=== PATIENT | female | born 1960 | race Caucasian/White ===

== ENCOUNTER 2016-10-10 13:27 | Emergency (ER) | payer SELFPAY ==
[~2016-10-10 13:27] MED LIST: ADDERALL30 MG PO; ADDERXR30 PO; AMB5 PO; CLONAZEPAM PO; KLONO2 PO; MSCONT60 PO; NORCO1 TAB PO
[2016-10-10 14:02] LABS: BASOPHILS 0.4 %; BASOPHILS ABSOLUTE 0.02 10/3/uL (0.0-0.16); EOSINOPHILS ABSOLUTE 0.22 10/3/uL (0.0-0.53); HEMATOCRIT 39.6 % (36.0-48.0); HEMOGLOBIN 13.4 g/dL (12.0-16.0); IMMATURE GRANULOCYTES 0.4 %; IMMATURE GRANULOCYTES ABSOLUTE 0.02 10/3/uL (0.0-0.11); LYMPHOCYTES 25.5 %; MEAN CORPUS HGB CONC 33.8 g/dL (32.0-36.0); MEAN CORPUSCULAR HEMOGLOB 30.7 pg (26.0-34.0); MEAN CORPUSCULAR VOLUME 90.8 fL (80-100); MEAN PLATELET VOLUME 9.3 fL (9.2-13.0); MONOCYTES 5.5 %; NEUTROPHILS 64.2 %; NEUTROPHILS ABSOLUTE 3.54 10/3/uL (2.02-8.40); PLATELET COUNT 325 10/3/uL (150-400); RBC DISTRIBUTION WIDTH 12.8 % (12.0-16.0); RED CELL COUNT 4.36 10/6/uL (4.0-5.6); WHITE BLOOD CELLS 5.5 10/3/uL (4.5-10.5)
[2016-10-10 14:04] LABS: MANUAL DIFF NO %
[2016-10-10 14:06] LABS: ASCORBIC ACID (UR NOT ORDER) NEG (NEG); BILIRUBIN, URINE NEGATIVE (NEG); ER URINALYSIS TAT 0 Hrs 10 Mins; KETONE, URINE NEGATIVE (NEG); LEUKOCYTE ESTERASE(NOT OR TRACE (NEG); NITRITE (URINE) NEG (NEG); WBC (NOT ORDERED) (RFLEX) 4 (0-5)
[2016-10-10 14:20] LABS: A/G RATIO 0.9 (0.7-1.9); ALBUMIN 3.7 G/DL (3.5-5.0); ALKALINE PHOSPHATASE 86 U/L (45-117); BUN (BLOOD UREA NITROGEN) 11 MG/DL (6-23); CALCIUM, SERUM 8.7 MG/DL (8.5-10.4); CHLORIDE, SERUM 105 MMOL/L (96-112); CO2 (CARBON DIOXIDE) 30 MMOL/L (24-34); CREATININE 1.05 MG/DL (0.55-1.02); GFR AFRICAN AMERICAN 70 ML/MIN (>=60); GFR NON AFRICAN AMERICAN 60 ML/MIN (>=60); GLOBULIN 3.9 G/DL (2.5-4.1); GLUCOSE, SERUM 109 MG/DL (60-99); POTASSIUM, SERUM 4.4 MMOL/L (3.5-5.3); SGOT(AST) 28 U/L (5-40); SGPT(ALT) 52 U/L (5-65); SODIUM, SERUM 142 MMOL/L (135-148); TOTAL BILIRUBIN 0.3 MG/DL (0-1.2); TOTAL PROTEIN 7.6 G/DL (6.0-8.5)
== END 2016-10-10 16:30 | disposition home or self-care (01) ==
LOC: ER 13:27
PROVIDERS: Emergency Medicine
DX: N93.8 Other specified abnormal uterine and vaginal bleeding (principal); Z79.899 Other long term (current) drug therapy
CPT/HCPCS: 80053; 81001; 83690; 84703; 85025; 99284

== ENCOUNTER 2017-01-28 14:50 | Emergency (ER) | payer SELFPAY ==
[2017-01-28 14:12] LABS: BASOPHILS 0.2 %; BASOPHILS ABSOLUTE 0.01 10/3/uL (0.0-0.16); EOSINOPHILS 2.3 %; EOSINOPHILS ABSOLUTE 0.13 10/3/uL (0.0-0.53); HEMATOCRIT 41.2 % (36.0-48.0); HEMOGLOBIN 14.5 g/dL (12.0-16.0); IMMATURE GRANULOCYTES 0.4 %; IMMATURE GRANULOCYTES ABSOLUTE 0.02 10/3/uL (0.0-0.11); LYMPHOCYTES 23.1 %; MEAN CORPUS HGB CONC 35.2 g/dL (32.0-36.0); MEAN CORPUSCULAR HEMOGLOB 31.6 pg (26.0-34.0); MEAN CORPUSCULAR VOLUME 89.8 fL (80-100); MEAN PLATELET VOLUME 9.7 fL (9.2-13.0); MONOCYTES ABSOLUTE 0.34 10/3/uL (0.21-1.20); NEUTROPHILS ABSOLUTE 3.83 10/3/uL (2.02-8.40); PLATELET COUNT 363 10/3/uL (150-400); RBC DISTRIBUTION WIDTH 13.3 % (12.0-16.0); RED CELL COUNT 4.59 10/6/uL (4.0-5.6); WHITE BLOOD CELLS 5.6 10/3/uL (4.5-10.5)
[2017-01-28 14:13] LABS: MANUAL DIFF NO %
[2017-01-28 14:21] LABS: PARTIAL THROMBO TIME 25.2 SEC (22.5-37.2)
[2017-01-28 14:22] LABS: INTERNATIONAL NORMAL RATI 1.1 UNITS (-); PROTIME (NOT ORD) 13.9 SEC (12.0-14.5)
[2017-01-28 14:25] LABS: A/G RATIO 1.1 (0.7-1.9); ALBUMIN 3.9 G/DL (3.5-5.0); BUN (BLOOD UREA NITROGEN) 9 MG/DL (6-23); CALCIUM, SERUM 9.1 MG/DL (8.5-10.4); CHLORIDE, SERUM 104 MMOL/L (96-112); CREATININE 0.86 MG/DL (0.55-1.02); GFR AFRICAN AMERICAN 89 ML/MIN (>=60); GFR NON AFRICAN AMERICAN 77 ML/MIN (>=60); GLOBULIN 3.6 G/DL (2.5-4.1); SGOT(AST) 15 U/L (5-40); SGPT(ALT) 25 U/L (5-65); SODIUM, SERUM 141 MMOL/L (135-148); TOTAL BILIRUBIN 0.3 MG/DL (0-1.2); TOTAL PROTEIN 7.5 G/DL (6.0-8.5)
[2017-01-28 14:26] LABS: ALKALINE PHOSPHATASE 102 U/L (45-117); CO2 (CARBON DIOXIDE) 25 MMOL/L (24-34); GLUCOSE, SERUM 138 MG/DL (60-99)
== END 2017-01-28 17:25 | disposition home or self-care (01) ==
LOC: ER 14:50
PROVIDERS: Emergency Medicine
DX: N93.9 Abnormal uterine and vaginal bleeding, unspecified (principal); E87.6 Hypokalemia; Z79.899 Other long term (current) drug therapy
CPT/HCPCS: 36415; 71020; 74176; 80053; 85025; 85610; 85730; 86850; 86900; 86901; 93005; 96374; 96375; 99285; A9270-GY; J1170; J2405

== ENCOUNTER 2017-04-13 12:58 | Inpatient (IN) | payer OTHER ==
[~2017-04-13] VITALS: Ht 170.2 cm; Wt 69.5 kg
--- NOTE | ~2017-04-13 | HP ---
History And Physical [facility] [address] [place]. [address] NAME: ANGE CUELLO : 64 STATUS : ADM Radha PAT#: [id number] AGE: 57 ADM/REG DATE : 04/13/17 MR#: [id number] REPORT SERV DATE: 04/14/17 DICTATED BY: OTONIEL CRAIG DATE: 04/13/17 REPORT STATUS : Draft TRANSCRIBED BY: MODL DATE: 04/13/17 DATE OF ADMISSION: 04/13/2017 CHIEF COMPLAINT: Fecal incontinence. HISTORY OF PRESENT ILLNESS: This is a 57-year-old female with a history of osteoarthritis, fibromyalgia, chronic pain, who presents to the emergency room at [facility] with the above-mentioned complaint. History is obtained from the patient and reviewing data available on the Gather system. She is accompanied today by her and daughter, and her mother as well. According to available data, Ms. Cuello had been having fecal incontinence for almost two weeks now. It is so bad, she has no sensation of even her bowel moving and she is wetting diapers. She says she has no control at all and does not feel anything. She has been seen at [facility] in the recent past for evaluation of uterine bleeding. We do not have any records from there, but according to them, they have had many tests done and are waiting for a biopsy. Somehow due to insurance issues, she has been having trouble scheduling these tests there. Going back in her history from [facility], I see report of a CT scan of the abdomen and pelvis which reported uterine thickening in March of 2016. She has been here since early part of this year and has had a repeat CT which showed the same as well. Appointments were made to see a youth support worker both times. Her primary care physician was also informed to follow this. Somewhere in our discussion, she said she has seen Dr. Sanabria, youth support worker, in [facility], and he said there was no cancer. In the emergency room, she had fecal incontinence as mentioned above. No nausea, vomiting, or any other signs. She says there was no blood in it as well. Hospitalist Service is asked to admit her for further evaluation and treatment as she had weakness and dehydration as well. At the time of my evaluation, she denied any chest pain, palpitations, or orthopnea. She had no cough, hemoptysis, night sweats, or weight loss. She has not had any recent falls or loss of consciousness. No history of recent fevers, chills, nausea, vomiting, diarrhea, or dysuria. No history of recent hematemesis or hematochezia. She has had vaginal bleeding secondary to her HOU[employer]ANG[employer]AGE [employer]TER issue going on. PAST MEDICAL HISTORY: Significant for history of uterine thickening, currently under investigation; history of chronic pain; fibromyalgia; and osteoarthritis. SOCIAL HISTORY: She says she does not smoke, drink, or use recreational drugs. FAMILY HISTORY: Noncontributory. MEDICATIONS: At home were reviewed by me in the chart today and reordered by me. REVIEW OF SYSTEMS: History And Physical [address] [address] NAME: ANGE CUELLO : 64 STATUS : ADM Radha PAT#: [id number] AGE: 57 ADM/REG DATE : 04/13/17 MR#: [id number] REPORT SERV DATE: 04/14/17 DICTATED BY: OTONIEL CRAIG DATE: 04/13/17 REPORT STATUS : Draft TRANSCRIBED BY: JOSE C DATE: 04/13/17 As in history of present illness. All other systems were reviewed in detail and are quite unremarkable. PHYSICAL EXAMINATION: GENERAL: This is a pleasant 57-year-old not in any acute distress. HEENT: Her head is atraumatic, normocephalic. She is alert, awake, oriented to time, place, and person. Pupils are equal, reacting to light and accommodating. External ocular muscles are intact. Membranes are moist and pink. Sclerae are nonicteric. NECK: Supple with no jugular venous distention, lymphadenopathy, or thyromegaly. LUNGS: Clear to auscultation with no wheezes, rubs, or crackles. HEART: Heart sounds were regular with no murmurs, rubs, or gallops. ABDOMEN: Diffusely tender. There is no guarding or rigidity. Bowel sounds are present. EXTREMITIES: Showed no cyanosis, clubbing, or edema. NEURO: Grossly intact. She was able to move all 4 extremities, although gait was not examined. VITAL SIGNS: Temperature today was 98.7, pulse 82, respirations 16 a minute, blood pressure was 127/66, and oxygen saturations were 100% on 2 L of oxygen via nasal cannula. LABORATORY DATA: Reviewed on the Gather system showed normal CMP, albumin of 3.7. Alkaline phosphatase, ALT, and AST were within normal limits. CBC showed a white blood cell count of 4100, hemoglobin was 12.8, hematocrit 38.2, and platelet count was 336,000. Urinalysis showed 2 rbc's and 2 wbc's with rare bacteria. Films of the CT scan of her abdomen and pelvis were reviewed by me on the PACS today and interpreted by me. Today's CT scan was compared to prior CT films available on the PACS as well. Per radiology report, there is no acute intra-abdominal pelvic pathology. There is, however, nodular prominence of the uterus, which has been there since prior CT scans as well. IMPRESSION: 1. Diarrhea. 2. Generalized weakness. 3. Uterine thickening, which is not new. 4. Chronic pain. 5. Fibromyalgia. 6. Osteoarthritis. PLAN: We will admit Ms. Cuello to the Hospitalist Service with defensive monitoring for a 24- hour observation. We will start her on IV fluids for hydration, follow chemistry and electrolytes in the morning, and replete as needed. Her uterine thickening, which is not new, has been investigated at [place]. The reports of which we do not have. We will get records from [place]. Meanwhile, the family wanted to go ahead and consult Gynecology service here, so we will go ahead and place a consultation for Gynecology to see her in the morning tomorrow. We will also continue her pain medications that she is on and other treatments as well. She will be placed on unfractionated heparin for DVT prophylaxis while here. I have discussed the above plans with the patient. Her questions were answered, and she and her family are agreeable to the above recommendations. Please see today's orders for all the details. History And Physical [address] [place]. [address] NAME: ANGE CUELLO : 64 STATUS : ADM Radha PAT#: [id number] AGE: 57 ADM/REG DATE : 04/13/17 MR#: [id number] REPORT SERV DATE: 04/14/17 DICTATED BY: OTONIEL CRAIG DATE: 04/13/17 REPORT STATUS : Draft TRANSCRIBED BY: JOSE C DATE: 04/13/17 MR/JOSE C Otoniel Craig M.D. / [id number] CC: MD Trey Sanchez II, M.D.
--- NOTE | ~2017-04-13 | EGD ---
EGD REPORT [facility] [address] [address] NAME: MARTA CUELLO : 64 STATUS : ADM IN PAT#: [id number] AGE: 57 ADM/REG DATE : 04/13/17 MR#: [id number] REPORT SERV DATE: 04/20/17 DICTATED BY: TREY HUMMEL DATE: 04/20/17 REPORT STATUS : Draft TRANSCRIBED BY: [facility] DATE: 04/20/17 Endoscopy Center Patient Name: Marta Cuello Date of : 1960 Attending MD: TREY HUMMEL MD Procedure Date No Time: 04/20/2017 Procedure: Colonoscopy Indications: Fecal incontinence, Incidental change in bowel habits noted Medicines: Monitored Anesthesia Care Complications: No immediate complications. Estimated blood loss: Minimal. Procedure: After I obtained informed consent, the scope was passed under direct vision. Throughout the procedure, the patient's blood pressure, pulse, and oxygen saturations were monitored continuously. The CF [id number] was introduced through the anus and advanced to the cecum, identified by appendiceal orifice and ileocecal valve. The colonoscopy was performed without difficulty. The patient tolerated the procedure well. The quality of the bowel preparation was fair. Findings: The perianal and digital rectal examinations were normal. Pertinent negatives include normal sphincter tone and no palpable rectal lesions. A semi-sessile polyp was found in the transverse colon. The polyp was 6 mm in size. The polyp was removed with a cold snare. Resection and retrieval were complete. Estimated blood loss was minimal. A sessile polyp was found in the sigmoid colon. The polyp was 4 mm in size. The polyp was removed with a cold biopsy forceps. Resection and retrieval were complete. Estimated blood loss was minimal. The exam was otherwise without abnormality on direct and retroflexion views. Impression: - One 6 mm polyp in the transverse colon. Resected and retrieved. - One 4 mm polyp in the sigmoid colon. Resected and retrieved. - The examination was otherwise normal on direct and retroflexion views. Recommendation: - Return patient to [facility] for [facility] care. - Soft diet. - Use fiber, for example Citrucel, Fibercon, Konsyl or Metamucil. EGD REPORT [address] [address] NAME: MARTA CUELLO : 64 STATUS : ADM IN PAT#: [id number] AGE: 57 ADM/REG DATE : 04/13/17 MR#: [id number] REPORT SERV DATE: 04/20/17 DICTATED BY: TREY HUMMEL DATE: 04/20/17 REPORT STATUS : Draft TRANSCRIBED BY: Lionical DATE: 04/20/17 - Lomotil 1 tablet PO daily and titrate up to effect (1-2 controlled BMs daily). - Would consider MRI of lumbar spine for complaints of fecal incontinence if not previously done. - Await pathology results. - Repeat colonoscopy for surveillance based on pathology results. Procedure Code(s): --- Professional --- 69173, Colonoscopy, flexible, proximal to splenic flexure; with removal of tumor(s), polyp(s), or other lesion(s) by snare technique 88131, 59, Colonoscopy, flexible, proximal to splenic flexure; with biopsy, single or multiple Diagnosis Code(s): --- Professional --- D12.5, Benign neoplasm of sigmoid colon D12.3, Benign neoplasm of transverse colon R15.9, Full incontinence of feces CPT copyright 2013 [employer]. All rights reserved. The codes documented in this report are preliminary and upon space control agent review may be revised to meet current compliance requirements. Trey Hummel MD TREY HUMMEL MD 04/20/2017 8:59 AM This report has been signed electronically. Number of Addenda: 0 Note Initiated On: 04/20/2017 7:59 AM Scope Withdrawal Time 0 hours 17 minutes 19 seconds [address] [place] [address]
--- NOTE | ~2017-04-13 | IDS ---
Interim Discharge Summary [facility] [address] [place]. [address] NAME: ANGE CUELLO : 64 STATUS : ADM Radha PAT#: [id number] AGE: 57 ADM/REG DATE : 04/13/17 MR#: [id number] REPORT SERV DATE: 04/18/17 DICTATED BY: JONELLE WANG II DATE: 04/17/17 REPORT STATUS : Draft TRANSCRIBED BY: MODL DATE: 04/17/17 ADMISSION DATE: 04/13/2017 DISCHARGE DATE: DATE OF INTERIM: 04/17/2017. INTERIM DIAGNOSES: 1. Endometrial thickening with vaginal bleeding concerning for endometrial cancer. 2. Persistent fecal incontinence. 3. Reported rectal bleeding with negative Hemoccult. 4. Chronic anxiety, depression, and panic attacks. 5. Chronic pain, on chronic narcotics. CONSULTANTS: Jonelle Kurtz M.D., with Gynecology. PROCEDURES: Hysteroscopy with biopsy and dilatation and curettage. BRIEF HISTORY OF PRESENT ILLNESS: The patient is a 57-year-old female with the above history who presented to [facility] due to fecal incontinence as well as vaginal and questionable rectal bleeding. For detailed history and physical examination, please see Dr. Valdez's note from 04/13/2017. HOSPITAL COURSE: On admission, the patient had a CT of the abdomen and pelvis which showed a nodular prominence of the uterus. Records were obtained from [facility] where she has had multiple ER visits and a workup from their gynecology team and an ultrasound. Her transvaginal ultrasound had shown a thickened heterogeneous endometrium concerning for endometrial cancer as well as an additional 9 mm echogenic lobular masslike structure projecting into the endometrial canal at the level of the uterine fundus. Dr. Kurtz was consulted and performed a hysteroscopy with D and C today. He says he will follow up with the patient in a week for pathology results. Regarding the patient's fecal incontinence, on admission a rectal examination showed no saddle anesthesia and good rectal tone so MRI was deferred especially in light of no obvious findings on the CT scan. Her Hemoccult was negative, but she does continue to complain of fecal incontinence, so we will go ahead and ask GI to see the patient prior to discharge. Of note, the patient does have a fairly significant psychiatric history with severe anxiety, depression, and panic attacks, and according to [facility] notes, she has had prior suicide attempts and inpatient psych admissions. She also has chronic pain and on chronic narcotics. If no further workup per GI, hopefully, the patient may be discharged soon. Of note, Dr. Valdez will take over the patient's care starting tomorrow. RICARDA/JOSE C Jonelle Wang II, MD Interim Discharge Summary [address] [address] NAME: ANGE CUELLO : 64 STATUS : ADM Radha PAT#: [id number] AGE: 57 ADM/REG DATE : 04/13/17 MR#: [id number] REPORT SERV DATE: 04/18/17 DICTATED BY: JONELLE WANG II DATE: 04/17/17 REPORT STATUS : Draft TRANSCRIBED BY: JOSE C DATE: 04/17/17 / [id number] CC: MD Trey Sanchez II, M.D.
--- NOTE | ~2017-04-13 | CN ---
Consultation Report [facility] [address] [place]. [address] NAME: ANGE CUELLO : 64 STATUS : ADM Radha PAT#: [id number] AGE: 57 ADM/REG DATE : 04/13/17 MR#: [id number] REPORT SERV DATE: 04/18/17 DICTATED BY: SHOLA KERNS DATE: 04/18/17 REPORT STATUS : Draft TRANSCRIBED BY: MODL DATE: 04/18/17 GI CONSULTATION DATE OF CONSULTATION: 04/18/2017 REASON FOR CONSULTATION: Evaluation and management of fecal incontinence, history of lower GI bleed. HISTORY OF PRESENT ILLNESS: Ms. Cuello is a 57-year-old female patient who presented to [facility] on the with a chief complaint of abdominal pain, fecal incontinence, vaginal bleeding. Ms. Cuello tells me that she has had fecal incontinence for two to three weeks now. She states that she has no sensation of having a bowel movement or leakage from the rectal area. She has never had a colonoscopy. She has been recently at [facility] for evaluation of abnormal endometrial thickening. She was seen by Gynecology here, underwent exam yesterday, and is to follow up with him as an outpatient. She states that for the past year she has had mainly abdominal weight gain to the point that it appeared she was . She had roughly six weeks worth of rectal and vaginal bleeding, weakness. She was seen by Dr. Kurtz here, had hysteroscopy with biopsy and D and C on 04/17/2017. CT of the abdomen and pelvis on admission showed nodular prominence of the uterus, records from [place] were obtained. She had been seen in the emergency room multiple times and had been worked up by Gynecology team with ultrasound. The transvaginal ultrasound she had there showed a thickened heterogeneous endometrium concerning for endometrial cancer as well as an additional 9 mm echogenic lobular masslike structure projecting into the endometrial canal at the level of the uterine fundus. She reports that her fecal incontinence is ongoing. She states that she has a positive family history of colon cancer in several second-degree relatives. By review of notes, it appears the hospitalist examined the patient yesterday by rectal exam. The patient had good rectal tone and GI consultation was requested for further evaluation. Of note, the patient's mother states that she has a pretty significant history with anxiety, depression, and review of records shows that she has a significant psychiatric history; panic attacks, prior suicide attempts, inpatient psychiatric admissions. She has a history of chronic pain and on chronic pain medications. Long discussion with the patient's family members regarding colonoscopy. The patient and her mother requests colonoscopy to be done prior to discharge as she states she has been trying to get this accomplished for several months now. The risks, benefits, alternatives, complications were detailed for them to include, but not limited to risk of bleeding, perforation, infection, reaction to medication, as well as cardiac and pulmonary side effects. She is agreeable to proceed. PAST MEDICAL HISTORY: Positive for fibromyalgia, rheumatoid arthritis, kidney stones, anxiety, depression, psoriasis, panic attacks. SURGERIES: Cholecystectomy, bilateral tubal ligation, D and C. FAMILY HISTORY: Positive for colon cancer. Consultation Report [address] [place]. [address] NAME: ANGE CUELLO : 64 STATUS : ADM Radha PAT#: [id number] AGE: 57 ADM/REG DATE : 04/13/17 MR#: [id number] REPORT SERV DATE: 04/18/17 DICTATED BY: SHOLA KERNS DATE: 04/18/17 REPORT STATUS : Draft TRANSCRIBED BY: JOSE C DATE: 04/18/17 SOCIAL HISTORY: . Lives independently. Denies alcohol, tobacco, or illicit drugs. ALLERGIES: NO KNOWN ALLERGIES. HOME MEDICATIONS: Adderall, Klonopin, [place], Motrin, MS Contin, and Ambien. REVIEW OF SYSTEMS: A 10-point review of systems has been obtained with pertinent positives being addressed in the history of present illness. PHYSICAL EXAMINATION: VITAL SIGNS: Temperature 98, pulse 56, respirations 16, and blood pressure 103/54. NEURO: An alert, tearful female, resting in bed with no focal deficits. GENERAL: Cooperative, no apparent distress. Awake, alert, oriented x3. HEAD, EARS, EYES, NOSE, AND THROAT: Anicteric. Pupils equal, round, reactive to light and accommodation. Normocephalic and atraumatic. NECK: Supple with no JVD or palpable nodes. LUNGS: Clear anteriorly with normal respiratory effort exhibited. Equal expansion. CARDIOVASCULAR: Regular rate and rhythm. ABDOMEN: Soft, but obese. Mild diffuse tenderness to palpation throughout hypoactive bowel sounds. EXTREMITIES: No edema. Normal distal pulses. SKIN: Warm, dry, and intact. PERTINENT LABORATORY DATA: Sodium is 142, potassium 3.7, BUN is 7, creatinine 0.7. White count 4, hemoglobin 10.9, hematocrit 32.1, platelet count of 282. ASSESSMENT: 1. Fecal incontinence with a history of recent lower GI bleeding. 2. Endometrial thickening, concern for endometrial cancer. 3. Anxiety with panic attacks. 4. Chronic pain syndrome, on chronic pain medications. PLAN: 1. After long discussion with the patient and family, we will place the patient on clear liquid diet today. 2. Give her bowel prep tomorrow for colonoscopy to be done on . 3. We will follow. 4. Other recommendations to follow endoscopy. KENRICK/JOSE C Consultation Report [place] [id number] [place]. [address] NAME: ANGE CUELLO : 64 STATUS : ADM Radha PAT#: [id number] AGE: 57 ADM/REG DATE : 04/13/17 MR#: [id number] REPORT SERV DATE: 04/18/17 DICTATED BY: SHOLA KERNS DATE: 04/18/17 REPORT STATUS : Draft TRANSCRIBED BY: JOSE C DATE: 04/18/17 JEFFREY Zaragoza / [id number] CC: Jeremy Sarkar M.D.
--- NOTE | ~2017-04-13 | DS ---
Discharge Summary [facility] [address] [facility] [place]. [address] NAME: ANGE CUELLO : 64 STATUS : DIS IN PAT#: [id number] AGE: 57 ADM/REG DATE : 04/13/17 MR#: [id number] REPORT SERV DATE: 04/21/17 DICTATED BY: EDWIN ACEVEDO DATE: 04/20/17 REPORT STATUS : Draft TRANSCRIBED BY: MODL DATE: 04/20/17 ADMISSION DATE: 04/13/2017 DISCHARGE DATE: 04/20/2017 DISCHARGED DIAGNOSES: 1. Endometrial thickening with vaginal bleeding concerning for endometrial cancer. 2. Fecal incontinence. 3. Reported rectal bleeding with negative Hemoccult. 4. Chronic anxiety. 5. Chronic pain. CONSULTATIONS: 1. Gynecology, Dr. Kurtz. 2. GI, Dr. Gomes. PROCEDURES AND IMAGIN. Hysteroscopy with biopsy and dilation and curettage. 2. Colonoscopy, 04/20/2017, impression: One 6-mm polyp in the transverse colon, resected and retrieved. One 4-mm polyp in the sigmoid colon, resected and retrieved. Examination was otherwise normal on direct and retroflexed views. 3. CT abdomen and pelvis, 04/13/2017, impression: No evidence of acute abnormality within the abdomen or pelvis. No nodule. Prominence of the uterus which could be more accurately evaluated with pelvic ultrasound. 4. MRI of the spine, 04/20/2017, impression: Moderate degenerative changes. No compression of the exiting nerve roots. No evidence of compression to the conus or cauda equina. LABORATORY DATA: WBC is 4.5, hemoglobin 11.7, hematocrit 35.5, and platelet count is 317. Sodium is 142, potassium is 3.7, chloride is 106, CO2 is 31, BUN is 6, creatinine 0.86, glucose is 82, and calcium is 8.5. COURSE OF HOSPITAL STAY: Please refer to history and physical dictated by Dr. Valdez on 04/13/2017, as well as interim note by Dr. Meade on 04/17/2017. This patient is a 57-year-old female, who presented to the [facility]'s emergency room due to fecal incontinence as well as vaginal and questionable rectal bleeding. Imaging was obtained, which is noted above. Records from [place] were also obtained, which revealed multiple ER visits for workup of a gynecological issues. Transvaginal ultrasound showed a thickened heterogeneous endometrium concerning for endometrial cancer. The patient was evaluated by Dr. Kurtz, underwent a hysteroscopy and D and C. Pathology is pending. The patient will follow up for post surgical procedure and lab results on April 24, 2017. The patient did state having periods of fecal incontinence and GI was consulted to evaluate the patient. The patient did undergo a colonoscopy, which is noted above. MRI was obtained, which is also noted above. No acute abnormal findings. The patient has been advised to follow up with her primary care and with Dr. Kurtz in the next three to five Discharge Summary [place] [id number] [facility] [place]. [address] NAME: ANGE CUELLO : 64 STATUS : DIS IN PAT#: [id number] AGE: 57 ADM/REG DATE : 04/13/17 MR#: [id number] REPORT SERV DATE: 04/21/17 DICTATED BY: EDWIN ACEVEDO. DATE: 04/20/17 REPORT STATUS : Draft TRANSCRIBED BY: JOSE C DATE: 04/20/17 days. The patient did state understanding. The patient did request pain medication, has advised the patient to follow up with her primary care which provides her narcotic prescription. The patient did state understanding. DISCHARGE MEDICATIONS: 1. Lomotil 2.5 mg one p.o. daily. 2. Hydrocodone 10/325 one p.o. every six hours p.r.n. for pain per primary care. 3. MS Contin 60 mg one p.o. every 12 hours per primary care. 4. Metamucil one pack p.o. daily. 5. Klonopin 2 mg one p.o. every six hours per primary care. 6. Ambien 5 mg one p.o. at bedtime per primary care. 7. Adderall 30 mg one p.o. twice daily per primary care. 8. Ibuprofen 400 mg one p.o. every four hours p.r.n. for pain. This discharge took greater than 30 minutes. VIOLETA/JOSE C Tracy Huntley, MAPPING TECHNICIAN Edwin Acevedo M.D. / [id number] CC: Jeremy Sarkar M.D.
[2017-04-13 16:25] LABS: BASOPHILS 0.5 %; BASOPHILS ABSOLUTE 0.02 10/3/uL (0.0-0.16); EOSINOPHILS 6.1 %; EOSINOPHILS ABSOLUTE 0.25 10/3/uL (0.0-0.53); ER CBC TAT 0 Hrs 10 Mins; HEMATOCRIT 38.2 % (36.0-48.0); HEMOGLOBIN 12.8 g/dL (12.0-16.0); IMMATURE GRANULOCYTES 0.2 %; IMMATURE GRANULOCYTES ABSOLUTE 0.01 10/3/uL (0.0-0.11); LYMPHOCYTES ABSOLUTE 1.65 10/3/uL (0.67-4.30); MEAN CORPUS HGB CONC 33.5 g/dL (32.0-36.0); MEAN CORPUSCULAR HEMOGLOB 32.2 pg (26.0-34.0); MEAN PLATELET VOLUME 9.7 fL (9.2-13.0); MONOCYTES ABSOLUTE 0.29 10/3/uL (0.21-1.20); NEUTROPHILS 46.2 %; PLATELET COUNT 336 10/3/uL (150-400); RBC DISTRIBUTION WIDTH 12.9 % (12.0-16.0); RED CELL COUNT 3.98 10/6/uL (4.0-5.6); WHITE BLOOD CELLS 4.1 10/3/uL (4.5-10.5)
[2017-04-13 16:26] LABS: MANUAL DIFF NO %
[2017-04-13 16:29] LABS: ASCORBIC ACID (UR NOT ORDER) NEG (NEG); BILIRUBIN, URINE NEGATIVE (NEG); ER URINALYSIS TAT 0 Hrs 14 Mins; KETONE, URINE NEGATIVE (NEG); LEUKOCYTE ESTERASE(NOT OR NEG (NEG); NITRITE (URINE) NEG (NEG); WBC (NOT ORDERED) (RFLEX) 2 (0-5)
[2017-04-13 16:46] LABS: ALBUMIN 3.7 G/DL (3.5-5.0); ALKALINE PHOSPHATASE 94 U/L (45-117); BUN (BLOOD UREA NITROGEN) 8 MG/DL (6-23); CHLORIDE, SERUM 104 MMOL/L (96-112); CO2 (CARBON DIOXIDE) 31 MMOL/L (24-34); CREATININE 0.77 MG/DL (0.55-1.02); GFR AFRICAN AMERICAN 101 ML/MIN (>=60); GFR NON AFRICAN AMERICAN 87 ML/MIN (>=60); GLOBULIN 3.8 G/DL (2.5-4.1); GLUCOSE, SERUM 87 MG/DL (60-99); POTASSIUM, SERUM 3.7 MMOL/L (3.5-5.3); SGOT(AST) 24 U/L (5-40); SGPT(ALT) 29 U/L (5-65); SODIUM, SERUM 139 MMOL/L (135-148); TOTAL BILIRUBIN 0.5 MG/DL (0-1.2); TOTAL PROTEIN 7.5 G/DL (6.0-8.5)
[2017-04-13] MEDS ORDERED: ADDERALL30 MG PO (18:40)
[2017-04-13] MEDS ORDERED: KLONO2 PO (18:40)
[2017-04-13] MEDS ORDERED: AMB5 PO (18:40)
[2017-04-13] MEDS ORDERED: NORCO1 TAB PO (18:41)
[2017-04-13] MEDS ORDERED: IBU400 PO (18:42)
[2017-04-13] MEDS ORDERED: MSCONT60 PO (18:42)
[2017-04-14 05:14] LABS: BASOPHILS 0.6 %; BASOPHILS ABSOLUTE 0.02 10/3/uL (0.0-0.16); EOSINOPHILS 8.1 %; EOSINOPHILS ABSOLUTE 0.28 10/3/uL (0.0-0.53); HEMOGLOBIN 11.1 g/dL (12.0-16.0); IMMATURE GRANULOCYTES 0.3 %; IMMATURE GRANULOCYTES ABSOLUTE 0.01 10/3/uL (0.0-0.11); LYMPHOCYTES 47.3 %; LYMPHOCYTES ABSOLUTE 1.64 10/3/uL (0.67-4.30); MEAN CORPUS HGB CONC 32.9 g/dL (32.0-36.0); MEAN CORPUSCULAR HEMOGLOB 31.6 pg (26.0-34.0); MEAN PLATELET VOLUME 9.5 fL (9.2-13.0); MONOCYTES 6.6 %; MONOCYTES ABSOLUTE 0.23 10/3/uL (0.21-1.20); NEUTROPHILS 37.1 %; NEUTROPHILS ABSOLUTE 1.29 10/3/uL (2.02-8.40); PLATELET COUNT 288 10/3/uL (150-400); RED CELL COUNT 3.51 10/6/uL (4.0-5.6); WHITE BLOOD CELLS 3.5 10/3/uL (4.5-10.5)
[2017-04-14 05:17] LABS: HEMATOCRIT 33.7 % (36.0-48.0)
[2017-04-14 05:18] LABS: MANUAL DIFF NO %
[2017-04-14 05:27] LABS: BUN (BLOOD UREA NITROGEN) 6 MG/DL (6-23); CHLORIDE, SERUM 110 MMOL/L (96-112); CO2 (CARBON DIOXIDE) 28 MMOL/L (24-34); GFR AFRICAN AMERICAN 113 ML/MIN (>=60); GFR NON AFRICAN AMERICAN 98 ML/MIN (>=60); GLUCOSE, SERUM 83 MG/DL (60-99); POTASSIUM, SERUM 4.1 MMOL/L (3.5-5.3); SODIUM, SERUM 144 MMOL/L (135-148)
[2017-04-14 05:28] LABS: CALCIUM, SERUM 7.9 MG/DL (8.5-10.4)
[2017-04-15 05:27] LABS: HEMATOCRIT 34.3 % (36.0-48.0); HEMOGLOBIN 11.5 g/dL (12.0-16.0)
[2017-04-17 06:06] LABS: BASOPHILS 0.5 %; BASOPHILS ABSOLUTE 0.02 10/3/uL (0.0-0.16); EOSINOPHILS 9.2 %; EOSINOPHILS ABSOLUTE 0.37 10/3/uL (0.0-0.53); HEMATOCRIT 32.1 % (36.0-48.0); HEMOGLOBIN 10.9 g/dL (12.0-16.0); IMMATURE GRANULOCYTES 0.2 %; IMMATURE GRANULOCYTES ABSOLUTE 0.01 10/3/uL (0.0-0.11); LYMPHOCYTES 43.9 %; LYMPHOCYTES ABSOLUTE 1.76 10/3/uL (0.67-4.30); MEAN CORPUSCULAR VOLUME 94.1 fL (80-100); MEAN PLATELET VOLUME 9.8 fL (9.2-13.0); MONOCYTES ABSOLUTE 0.28 10/3/uL (0.21-1.20); NEUTROPHILS 39.2 %; NEUTROPHILS ABSOLUTE 1.57 10/3/uL (2.02-8.40); PLATELET COUNT 282 10/3/uL (150-400); RBC DISTRIBUTION WIDTH 12.8 % (12.0-16.0); RED CELL COUNT 3.41 10/6/uL (4.0-5.6)
[2017-04-17 06:08] LABS: MANUAL DIFF NO %
[2017-04-17 06:14] LABS: BUN (BLOOD UREA NITROGEN) 7 MG/DL (6-23); CHLORIDE, SERUM 109 MMOL/L (96-112); CO2 (CARBON DIOXIDE) 26 MMOL/L (24-34); GFR AFRICAN AMERICAN 113 ML/MIN (>=60); GFR NON AFRICAN AMERICAN 98 ML/MIN (>=60); GLUCOSE, SERUM 88 MG/DL (60-99); POTASSIUM, SERUM 3.7 MMOL/L (3.5-5.3); SODIUM, SERUM 142 MMOL/L (135-148)
[2017-04-17 06:17] LABS: CALCIUM, SERUM 8.9 MG/DL (8.5-10.4)
[2017-04-18 13:18] LABS: ASCORBIC ACID (UR NOT ORDER) NEG (NEG); BILIRUBIN, URINE NEGATIVE (NEG); KETONE, URINE NEGATIVE (NEG); LEUKOCYTE ESTERASE(NOT OR NEG (NEG); WBC (NOT ORDERED) (RFLEX) 2 (0-5)
[2017-04-19 05:59] LABS: BASOPHILS 0.2 %; BASOPHILS ABSOLUTE 0.01 10/3/uL (0.0-0.16); EOSINOPHILS 2.8 %; EOSINOPHILS ABSOLUTE 0.14 10/3/uL (0.0-0.53); HEMATOCRIT 31.1 % (36.0-48.0); HEMOGLOBIN 10.5 g/dL (12.0-16.0); LYMPHOCYTES 42.1 %; LYMPHOCYTES ABSOLUTE 2.12 10/3/uL (0.67-4.30); MEAN CORPUS HGB CONC 33.8 g/dL (32.0-36.0); MEAN CORPUSCULAR HEMOGLOB 32.7 pg (26.0-34.0); MEAN CORPUSCULAR VOLUME 96.9 fL (80-100); MEAN PLATELET VOLUME 9.5 fL (9.2-13.0); NEUTROPHILS 48.9 %; NEUTROPHILS ABSOLUTE 2.47 10/3/uL (2.02-8.40); PLATELET COUNT 255 10/3/uL (150-400); RBC DISTRIBUTION WIDTH 12.9 % (12.0-16.0); RED CELL COUNT 3.21 10/6/uL (4.0-5.6)
[2017-04-19 06:00] LABS: MANUAL DIFF NO %
[2017-04-19 06:10] LABS: BUN (BLOOD UREA NITROGEN) 7 MG/DL (6-23); CALCIUM, SERUM 8.4 MG/DL (8.5-10.4); CHLORIDE, SERUM 110 MMOL/L (96-112); CO2 (CARBON DIOXIDE) 30 MMOL/L (24-34); CREATININE 0.81 MG/DL (0.55-1.02); GFR AFRICAN AMERICAN 95 ML/MIN (>=60); GFR NON AFRICAN AMERICAN 82 ML/MIN (>=60); GLUCOSE, SERUM 80 MG/DL (60-99); POTASSIUM, SERUM 4.1 MMOL/L (3.5-5.3); SODIUM, SERUM 146 MMOL/L (135-148)
[2017-04-20 04:55] LABS: INTERNATIONAL NORMAL RATI 1.1 UNITS (-); PROTIME (NOT ORD) 13.8 SEC (12.0-14.5)
[2017-04-20 05:04] LABS: BASOPHILS 0.4 %; BASOPHILS ABSOLUTE 0.02 10/3/uL (0.0-0.16); EOSINOPHILS ABSOLUTE 0.27 10/3/uL (0.0-0.53); HEMOGLOBIN 11.7 g/dL (12.0-16.0); IMMATURE GRANULOCYTES 0.2 %; IMMATURE GRANULOCYTES ABSOLUTE 0.01 10/3/uL (0.0-0.11); LYMPHOCYTES 42.7 %; LYMPHOCYTES ABSOLUTE 1.91 10/3/uL (0.67-4.30); MEAN CORPUSCULAR HEMOGLOB 32.1 pg (26.0-34.0); MEAN CORPUSCULAR VOLUME 97.3 fL (80-100); MEAN PLATELET VOLUME 9.7 fL (9.2-13.0); MONOCYTES 6.7 %; NEUTROPHILS ABSOLUTE 1.96 10/3/uL (2.02-8.40); PLATELET COUNT 317 10/3/uL (150-400); RBC DISTRIBUTION WIDTH 12.7 % (12.0-16.0); RED CELL COUNT 3.65 10/6/uL (4.0-5.6); WHITE BLOOD CELLS 4.5 10/3/uL (4.5-10.5)
[2017-04-20 05:06] LABS: HEMATOCRIT 35.5 % (36.0-48.0); MANUAL DIFF NO %
[2017-04-20 05:07] LABS: BUN (BLOOD UREA NITROGEN) 6 MG/DL (6-23); CALCIUM, SERUM 8.5 MG/DL (8.5-10.4); CHLORIDE, SERUM 106 MMOL/L (96-112); CO2 (CARBON DIOXIDE) 31 MMOL/L (24-34); CREATININE 0.86 MG/DL (0.55-1.02); GFR AFRICAN AMERICAN 88 ML/MIN (>=60); GFR NON AFRICAN AMERICAN 76 ML/MIN (>=60); GLUCOSE, SERUM 82 MG/DL (60-99); POTASSIUM, SERUM 3.7 MMOL/L (3.5-5.3); SODIUM, SERUM 142 MMOL/L (135-148)
[2017-04-20] MEDS ORDERED: LOM PO (14:16)
[2017-04-20] MEDS ORDERED: METPAKSF PO (14:18)
== END 2017-04-20 15:30 | disposition home or self-care (01) | DRG 744 ==
LOC: ER 12:58 → 4EA 19:37
PROVIDERS: Emergency Medicine; Internal Medicine; Internal Medicine Gastroenterology; Internal Medicine Pulmonary Disease; Nurse Practitioner Family
PROC: 0UBC8ZX Excision of Cervix, Via Natural or Artificial Opening Endoscopic, Diagnostic (ICD-10-PCS; 2017-04-17)
PROC: 0DBL8ZX Excision of Transverse Colon, Via Natural or Artificial Opening Endoscopic, Diagnostic (ICD-10-PCS; principal; 2017-04-20 08:14)
PROC: 0DBN8ZX Excision of Sigmoid Colon, Via Natural or Artificial Opening Endoscopic, Diagnostic (ICD-10-PCS; 2017-04-20 08:14)
DX: C53.0 Malignant neoplasm of endocervix (principal); K92.1 Melena; I95.2 Hypotension due to drugs; D12.5 Benign neoplasm of sigmoid colon; R15.9 Full incontinence of feces; D12.3 Benign neoplasm of transverse colon; G89.29 Other chronic pain; M79.7 Fibromyalgia; M06.9 Rheumatoid arthritis, unspecified; L40.9 Psoriasis, unspecified; M19.90 Unspecified osteoarthritis, unspecified site; F41.0 Panic disorder [episodic paroxysmal anxiety]; F32.9 Major depressive disorder, single episode, unspecified; F41.9 Anxiety disorder, unspecified; N95.0 Postmenopausal bleeding; N88.2 Stricture and stenosis of cervix uteri; T39.95XA Adverse effect of unspecified nonopioid analgesic, antipyretic and antirheumatic, initial encounter; D25.0 Submucous leiomyoma of uterus
CPT/HCPCS: 72148; 74177; 80048; 80053; 81001; 82272; 83735; 84100; 85014; 85018; 85025; 85610; 87040; 88305; 99285; A9270-GY; J0461; J0694; J1170; J1885; J2250; J2405; J3010; Q9967